=== PATIENT | male | born 1960 | race Caucasian/White ===

== ENCOUNTER 2021-06-26 03:37 | Emergency (ER) | payer MEDICAID ==
[~2021-06-26] VITALS: Ht 185.4 cm; Wt 147.4 kg
--- NOTE | 2021-06-26 03:45 | NUR ---
Patient walked into ER c/o bilateral foot swelling that started 4 days ago and bilateral flank pain for several days. Patient denies SOB, N/V, CP.
[2021-06-26 04:21] LABS: HEMATOCRIT 45.8 % (36.7-47.1); MEAN CORPUSCULAR HEMOGLOBIN 27.9 uug (23.8-33.4); MEAN CORPUSCULAR VOLUME 85.3 fL (73.0-96.2); PLATELET COUNT (AUTO) 152 K/uL (152-348)
[2021-06-26 04:31] LABS: CREATININE 1.3 mg/dL (0.6-1.3); POTASSIUM 3.7 mmol/L (3.5-5.1)
[2021-06-26 04:35] LABS: *BILIRUBIN,URIN NEGATIVE (NEGATIVE); *CLARITY,URINE CLEAR (CLEAR); *COLOR,URINE YELLOW (YELLOW); *KETONES,URINE NEGATIVE (NEGATIVE); *UROBILINOGEN,URINE 0.2 E.U./dl (NORMAL); LEUKOCYTE ESTERASE ,URINE NEGATIVE (NEGATIVE); NITRITE, URINE NEGATIVE (NEGATIVE)
[2021-06-26] MEDS ORDERED: METH-807 PO (04:37)
[2021-06-26] MEDS ORDERED: SERT100T PO (04:37)
[2021-06-26] MEDS ORDERED: ICOS1CAP PO (04:37)
[2021-06-26] MEDS ORDERED: LISI20TA30 PO (04:37)
[2021-06-26] MEDS ORDERED: CARV25TA2 PO (04:37)
[2021-06-26] MEDS ORDERED: PIOG15TA8 PO (04:37)
[2021-06-26] MEDS ORDERED: ALLO300T2 PO (04:37)
[2021-06-26] MEDS ORDERED: EMPA25TA PO (04:37)
[2021-06-26] MEDS ORDERED: INSU100I26 SQ (04:37)
[2021-06-26] MEDS ORDERED: MELO-107 PO (04:37)
[2021-06-26] MEDS ORDERED: ASPI81TA31 PO (04:37)
[2021-06-26] MEDS ORDERED: vitamin d PO (04:37)
[2021-06-26] MEDS ORDERED: ATOR20TA PO (04:37)
[2021-06-26] MEDS ORDERED: SEMA1PEN SQ (04:37)
[2021-06-26] MEDS ORDERED: METF-442 PO (04:37)
[2021-06-26] MEDS ORDERED: GABA-532 PO (04:37)
--- NOTE | 2021-06-26 04:42 | NUR ---
Patient out of unit for ct scan via gurny.
[2021-06-26 04:44] LABS: BILIRUBIN,DIRECT 0.1 mg/dL (0.0-0.2); BILIRUBIN,TOTAL 0.3 mg/dL (0.2-1.0); TOTAL PROTEIN, SERUM 7.4 g/dL (6.4-8.2)
[2021-06-26] MEDS ORDERED: SWABABLE VALVE TRANSFER SET EA MC ONE (04:45)
[2021-06-26] MEDS ORDERED: IV NORMAL SALINE 250 ML IV ONE (04:45)
[2021-06-26] MEDS ORDERED: IOHEXOL 350 100 ML INFUS..BTL ONE (04:45)
[2021-06-26 04:46] LABS: *BLOOD, URINE TRACE (NEGATIVE); UGLUCOSE 2+ (NEGATIVE)
[2021-06-26 04:47] LABS: BACTERIA,URINE NONE SEEN /HPF (NONE SEEN); RBC,URINE 0-3 /HPF (0-3); SQUAMOUS EPITHELIAL CELL,UR FEW /HPF (NONE SEEN); WBC,URINE 0-3 /HPF (0-3)
--- NOTE | 2021-06-26 05:07 | NUR ---
Patient back from ct scan with no distress noted.
--- NOTE | 2021-06-26 05:09 | NUR ---
[employer] tech into do Ultrasound.a
[2021-06-26] MEDS ORDERED: HYDR-4209 PO (06:14)
--- NOTE | 2021-06-26 06:35 | NUR ---
IV removed. Catheter intact and site benign. Pressure and 4x4 gauze applied to site. No bleeding noted.
[2021-06-26 06:40] VITALS: BP 135/70
--- NOTE | 2021-06-26 06:45 | NUR ---
Patient discharged to home in stable condition. Written and verbal after care instructions given. Patient verbalizes understanding of instructions. Stressed follow up or return to ER for worsening s/s.
== END 2021-06-26 06:46 | disposition home or self-care (01) ==
LOC: ER 03:48
DX: R10.9 Unspecified abdominal pain (principal); R60.0 Localized edema; I44.0 Atrioventricular block, first degree; E66.01 Morbid (severe) obesity due to excess calories; Z68.41 Body mass index [BMI] 40.0-44.9, adult; E11.42 Type 2 diabetes mellitus with diabetic polyneuropathy; E78.5 Hyperlipidemia, unspecified; I10 Essential (primary) hypertension; Z87.442 Personal history of urinary calculi; Z87.891 Personal history of nicotine dependence; Z79.84 Long term (current) use of oral hypoglycemic drugs; Z79.899 Other long term (current) drug therapy; Z79.82 Long term (current) use of aspirin
CPT/HCPCS: 36415; 71275; 74174; 80048; 80076; 81001; 83880; 84484; 85025; 85379; 85730; 87426; 93005; 93970; 99285; Q9967; 70030-TC; A4663; J7050

== ENCOUNTER 2021-10-14 01:40 | Emergency (ER) | payer MEDICAID ==
[~2021-10-14] VITALS: Ht 185.4 cm; Wt 146.5 kg
[~2021-10-14 01:40] MED LIST: ALLO300T2 PO; ASPI81TA31 PO; ATOR20TA PO; CARV25TA2 PO; EMPA25TA PO; GABA-532 PO; HYDR-4209 PO; ICOS1CAP PO; INSU100I26 SQ; LISI20TA30 PO; MELO-107 PO; METF-442 PO; METH-807 PO; PIOG15TA8 PO; SEMA1PEN SQ; SERT100T PO; vitamin d PO
--- NOTE | 2021-10-14 01:55 | NUR ---
DR. GRAFF AT BEDSIDE, MSE IN PROGRESS.
--- NOTE | 2021-10-14 02:01 | NUR ---
LAB AT BEDSIDE.
[2021-10-14] MEDS ORDERED: OFLO5DRO5 RIGHT EAR (02:05)
--- NOTE | 2021-10-14 02:11 | NUR ---
XRAY AT BEDSIDE.
[2021-10-14 02:12] LABS: HEMATOCRIT 43.7 % (36.7-47.1); MEAN CORPUSCULAR HEMOGLOBIN 27.6 uug (23.8-33.4); MEAN CORPUSCULAR VOLUME 83.1 fL (73.0-96.2); PLATELET COUNT (AUTO) 154 K/uL (152-348)
[2021-10-14 02:16] LABS: CREATININE 1.3 mg/dL (0.6-1.3)
[2021-10-14 02:29] LABS: BILIRUBIN,DIRECT 0.1 mg/dL (0.0-0.2); BILIRUBIN,TOTAL 0.4 mg/dL (0.2-1.0); TOTAL PROTEIN, SERUM 7.4 g/dL (6.4-8.2)
--- NOTE | 2021-10-14 04:01 | NUR ---
Pt provided urine sample, sent to lab.
--- NOTE | 2021-10-14 04:02 | NUR ---
RAOUL FROM US AT BEDSIDE.
[2021-10-14 04:06] LABS: *BILIRUBIN,URIN NEGATIVE (NEGATIVE); *BLOOD, URINE 1+ (NEGATIVE); *COLOR,URINE YELLOW (YELLOW); *KETONES,URINE NEGATIVE (NEGATIVE); *UROBILINOGEN,URINE 0.2 E.U./dl (NORMAL); LEUKOCYTE ESTERASE ,URINE NEGATIVE (NEGATIVE); NITRITE, URINE NEGATIVE (NEGATIVE)
[2021-10-14 04:07] LABS: UGLUCOSE 2+ (NEGATIVE)
[2021-10-14 04:11] LABS: *CLARITY,URINE SLIGHTLY HAZY (CLEAR); BACTERIA,URINE NONE SEEN /HPF (NONE SEEN); SQUAMOUS EPITHELIAL CELL,UR NONE SEEN /HPF (NONE SEEN); WBC,URINE 0-3 /HPF (0-3)
[2021-10-14] MEDS ORDERED: FURO-152 PO (04:31)
[2021-10-14] MEDS ORDERED: POTA10TA21 PO (04:31)
--- NOTE | 2021-10-14 04:52 | NUR ---
Patient discharged to home in stable condition. Written and verbal after care instructions given. Patient verbalizes understanding of instructions. Stressed follow up or return to ER for worsening s/s. Denies any pain/discxomfort upon discharge. Steady gait.
[2021-10-14 04:57] VITALS: BP 138/88
== END 2021-10-14 05:02 | disposition home or self-care (01) ==
LOC: ER 01:42
DX: I11.0 Hypertensive heart disease with heart failure (principal); I50.9 Heart failure, unspecified; H60.91 Unspecified otitis externa, right ear; E78.5 Hyperlipidemia, unspecified; Z90.49 Acquired absence of other specified parts of digestive tract; Z79.84 Long term (current) use of oral hypoglycemic drugs; Z79.899 Other long term (current) drug therapy; E11.42 Type 2 diabetes mellitus with diabetic polyneuropathy; Z79.4 Long term (current) use of insulin; I44.0 Atrioventricular block, first degree
CPT/HCPCS: 36415; 71045; 85025; 85730; 93005; A4663

== ENCOUNTER 2022-07-07 22:25 | Emergency (ER) | payer MEDICAID ==
[~2022-07-07] VITALS: Ht 182.9 cm; Wt 130.6 kg
[~2022-07-07 22:25] MED LIST changes: +FURO-152 PO; +OFLO5DRO5 RIGHT EAR; +POTA10TA21 PO
--- NOTE | 2022-07-07 22:35 | NUR ---
Dr Mejias at bedside, MSE in progress
[2022-07-07 22:55] LABS: HEMATOCRIT 43.6 % (36.7-47.1); MEAN CORPUSCULAR HEMOGLOBIN 27.8 uug (23.8-33.4); MEAN CORPUSCULAR VOLUME 82.2 fL (73.0-96.2); PLATELET COUNT (AUTO) 139 K/uL (152-348)
[2022-07-07 23:08] LABS: CARBON DIOXIDE 33 mmol/L (21-32); CHLORIDE 106 mmol/L (98-107); CREATININE 1.2 mg/dL (0.6-1.3); GLUCOSE 114 mg/dL (74-106); POTASSIUM 3.7 mmol/L (3.5-5.1); UREA NITROGEN, BLOOD 15 mg/dL (7-18)
--- NOTE | 2022-07-07 23:47 | NUR ---
Patient discharged to home in stable condition. Written and verbal after care instructions given. Patient verbalizes understanding of instructions. Stressed follow up or return to ER for worsening s/s. Patient is a/ox4, NAD noted. Patient is able to walk without assistance
[2022-07-07 23:52] VITALS: BP 134/81
== END 2022-07-07 23:53 | disposition home or self-care (01) ==
LOC: ER 22:26
DX: R42 Dizziness and giddiness (principal); E11.42 Type 2 diabetes mellitus with diabetic polyneuropathy; G47.30 Sleep apnea, unspecified; Z90.49 Acquired absence of other specified parts of digestive tract; E78.5 Hyperlipidemia, unspecified; I10 Essential (primary) hypertension
CPT/HCPCS: 36415; 71045; 84484; 85025; 93005; A4663

== ENCOUNTER 2022-08-10 00:48 | Emergency (ER) | payer MEDICAID ==
[~2022-08-10] VITALS: Ht 182.9 cm; Wt 123.8 kg
--- NOTE | 2022-08-10 01:08 | NUR ---
Pt provided urine sample, sent to lab.
[2022-08-10 01:13] LABS: *BILIRUBIN,URIN 1+ (NEGATIVE); *BLOOD, URINE 3+ (NEGATIVE); *CLARITY,URINE CLOUDY (CLEAR); *COLOR,URINE Brown (YELLOW); *KETONES,URINE TRACE (NEGATIVE); *UROBILINOGEN,URINE 0.2 E.U./dl (NORMAL); LEUKOCYTE ESTERASE ,URINE NEGATIVE (NEGATIVE); NITRITE, URINE NEGATIVE (NEGATIVE); PH,URINE 5.5 (5.0-8.0); UGLUCOSE NEGATIVE (NEGATIVE)
[2022-08-10 01:23] LABS: HEMATOCRIT 44.2 % (36.7-47.1); MEAN CORPUSCULAR HEMOGLOBIN 27.8 uug (23.8-33.4); MEAN CORPUSCULAR VOLUME 82.3 fL (73.0-96.2); PLATELET COUNT (AUTO) 162 K/uL (152-348)
[2022-08-10 01:30] LABS: CREATININE 1.2 mg/dL (0.6-1.3); POTASSIUM 3.6 mmol/L (3.5-5.1)
[2022-08-10 01:36] LABS: BILIRUBIN,DIRECT 0.1 mg/dL (0.0-0.2); BILIRUBIN,TOTAL 0.3 mg/dL (0.2-1.0); TOTAL PROTEIN, SERUM 7.8 g/dL (6.4-8.2)
[2022-08-10 03:19] LABS: BACTERIA,URINE NONE SEEN /HPF (NONE SEEN); RBC,URINE TNTC /HPF (0-3); SQUAMOUS EPITHELIAL CELL,UR FEW /HPF (NONE SEEN); WBC,URINE 0-3 /HPF (0-3)
== END 2022-08-10 02:03 | disposition home or self-care (01) ==
LOC: ER 00:48
DX: R31.0 Gross hematuria (principal); E11.42 Type 2 diabetes mellitus with diabetic polyneuropathy; Z90.49 Acquired absence of other specified parts of digestive tract; E78.00 Pure hypercholesterolemia, unspecified; Z79.84 Long term (current) use of oral hypoglycemic drugs; Z79.899 Other long term (current) drug therapy; I10 Essential (primary) hypertension; R35.0 Frequency of micturition
CPT/HCPCS: 36415; 85025; 85730; 87086; A4663